=== PATIENT | male | born 1925 | race Caucasian/White ===

== ENCOUNTER 2017-01-26 12:31 | Observation (INO) ==
[2017-01-26] MEDS ORDERED: Aspirin 81 MG TAB.CHEW PO ONE (16:37)
[2017-01-26 17:16] LABS: Basophils % 0.6 %; Eosinophils # 0.1 K/mcL (0.0-0.6); Eosinophils % 1.6 %; Hematocrit 44.1 % (37.5-50.1); Hemoglobin 14.8 g/dL (12.9-16.9); Immature Granulocytes % 0.8 % (0-4); Lymphocytes # 1.1 K/mcL (0.6-4.6); Lymphocytes % 16.8 %; Mean Corpuscular HGB Conc 33.6 g/dL (31.6-35.5); Mean Corpuscular Hemoglobin 31.6 pg (28.0-33.3); Mean Platelet Volume 12.2 fL (9.4-12.4); Monocytes # 0.5 K/mcL (0.0-1.3); Monocytes % 8.1 %; Neutrophils # 4.6 K/mcL (1.6-8.9); Platelet Count 151 K/mcL (140-400); Red Blood Count 4.69 M/mcL (4.19-5.50); Red Cell Distribution Width 12.6 % (11.5-14.5); Segmented Neutrophils % 72.1 %
[2017-01-26 17:19] LABS: Alanine Aminotransferase 14 Units/L (0-55); Albumin 4.1 g/dL (3.5-5.0); Albumin/Globulin Ratio 1.1 (1.1-2.2); Alkaline Phosphatase 103 Units/L (38-126); Aspartate Amino Transferase 21 Units/L (5-34); BUN/Creatinine Ratio 10 (6-26); Blood Urea Nitrogen 12 mg/dL (8-26); Calcium 9.9 mg/dL (8.6-10.8); Carbon Dioxide 28 mEq/L (19-29); Chloride 105 mEq/L (98-109); Globulin 3.6 g/dL (2.4-3.5); Glucose 100 mg/dL (70-99); Osmolality,Calculated 290 (280-300); Potassium 4.4 mEq/L (3.5-4.5); Sodium 140 mEq/L (136-145); Total Protein 7.7 g/dL (6.0-8.3); eGFR For African Americans > 60 (> 60); eGFR For Non-African Americans 59 (> 60)
[2017-01-26 17:45] LABS: Bilirubin,Urine Negative (Negative); Blood,Urine Negative (Negative); Clarity,Urine Clear (Clear); Color,Urine Yellow (Yellow); Glucose,Urine (UA) Normal (Normal); Ketones,Urine Negative (Negative); Leukocyte Esterase,Urine Negative (Negative); Nitrite,Urine Negative (Negative); PH,Urine 6.5 pH Units (5.0-8.0); Protein,Urine Negative (Neg-Trace); Specific Gravity,Urine 1.013 (1.010-1.025); Urobilinogen,Urine Normal (Normal)
[2017-01-26] MEDS ORDERED: Naloxone 0.4 MG/ML INJ IVP PRN (21:01)
[2017-01-26] MEDS ORDERED: Acetaminophen 325 MG TABLET PO PRN (21:12)
[2017-01-26] MEDS ORDERED: Ondansetron 4 MG/2 ML VIAL IVP PRN (21:12)
[2017-01-26] MEDS: *HR* Heparin 5,000 UNIT/ML VIAL SQ SCH (22:08)
--- NOTE | 2017-01-26 23:19 | Internal Med History&Physical ---
Date of Encounter: 01/26/17 Time of Encounter: 20:05 Assessment and Plan (1) TIA (transient ischemic attack) Current visit: Yes Status: Acute 1. Symptoms resolved two days ago roughly one hour after symptom onset. 2. Will proceed with stroke work-up. 3. Will order MRI brain, ECHO, Carotid Dopplers. 4. Will check lipid profile. 5. Will start on daily aspirin. 6. Monitor BP and start treating if necessary. Qualifiers: Transient cerebral ischemia type: unspecified Qualified Code(s): G45.9 - Transient cerebral ischemic attack, unspecified (2) DVT prophylaxis Current visit: Yes Status: Acute 1. Heparin SQ. Internal Medicine - H&P: HPI Chief complaint: left sided weakness and numbness Admitted From: Emergency Dept Plans for Post Hospital Care: Home History of present illness: Mr. Gimenez is a 89 year old male who presents with acute onset of numbness, weakness, and hemiparesis 2 days ago. Symptoms lasted roughly an hour and they resolved thereafter. This happened while he was at home standing in the kitchen. He almost fell to the ground, but he was able to sit in a chair until symptoms resolved. He was coaxed by a family member in [place] to come in and be evaluated. He feels fine now and is back to baseline. He has no residual deficits or complaints. Upon my assessment of the patient ER, he feels well and has no complaints. His and daughter are present and confirmed the above history. He takes no medications and has been healthy all his life. He had a physical exam at the [place] last year and follows once per year or every other year for physical exams. Otherwise, he has no medical issues. He has never been diagnosed with hypertension but his blood pressure is slightly elevated today. Past Med Surg Social Fam HX - Past Medical History Source: patient, old records reviewed Medical history: arthritis Psychiatric history: no psych history - Past Surgical History Surgical History: orthopedic, other - Social History Smoking Status: Former smoker Smokeless Tobacco Status: No Alcohol use: occasionally Drug use: none Current living situation: Home, With Family Activity Level: Independent ambulation, Very active Recent Out of Country Travel Within the Last 8 Weeks: No - Family History Father Living Status: Hx Family Cardiac Disorders: Yes (hypotension) Mother Living Status: Hx Family Neurologic Disorders: No Internal Medicine - H&P: Meds Cholecalciferol (Vitamin D3) [Vitamin D] 2,000 unit PO DAILY 04/07/16 [History] 3 Allergy/AdvReac Type Severity Reaction Status Date / Time No Known Allergies Allergy Verified 04/07/16 10:48 - Constitutional Constitutional: no chills, no fever(s), no night sweats - EENT Eyes: no blurry vision, no change in vision Ears: no ear pain, no tinnitus Nose, mouth and throat: no nasal congestion, no sinus pressure, no sore throat - Cardiovascular Cardiovascular ROS IM: no chest pain, no diaphoresis, no dyspnea, no dyspnea on exertion, no edema, no lightheadedness, no palpitations, no syncope - Respiratory Respiratory: no cough, no dyspnea, no hemoptysis - Gastrointestinal Gastrointestinal: no abdominal pain, no diarrhea, no hematemesis, no hematochezia, no melena, no nausea, no vomiting - Genitourinary Genitourinary ROS male: no dysuria, no flank pain, no hematuria - Musculoskeletal Musculoskeletal ROS IM: no arthralgias, no back pain - Integumentary Integumentary IM: no rash, no jaundice - Neurological Neurological ROS: focal weakness, numbness, paresthesias, no frequent falls, no headache(s) - Psychiatric Psychiatric: no anxiety, no depression - Endocrine Endocrine IM: no polydipsia, no polyuria - Allergic/Immunologic Allergic/Immunologic: no GI upset with certain foods - Constitutional Vitals: Temp Pulse Resp BP Pulse Ox 98.0 F 66 15 167/70 96 01/26/17 22:48 01/26/17 22:48 01/26/17 22:48 01/26/17 22:48 01/26/17 22:48 General appearance: Present: cooperative, A&O X 3, pleasant, no acute distress - Head Head exam: Present: atraumatic, normal inspection - Expanded Head Exam Head exam expanded: Absent: abrasion, contusion, general tenderness - Eye Eye exam: Present: EOMI, normal appearance, PERRL. Absent: scleral icterus Pupils: Present: normal accommodation - ENT ENT exam: Present: mucous membranes moist, normal exam - Neck Neck exam general surgery: Present: full ROM, supple. Absent: tenderness - Respiratory Respiratory exam: Present: CTAB. Absent: chest wall tenderness, rales, rhonchi , wheezes - Cardiovascular Cardiovascular exam: Present: RRR, +S1, +S2. Absent: diastolic murmur, JVD, systolic murmur - GI/Abdominal GI/Abdominal exam: Present: normal bowel sounds, soft. Absent: hepatomegaly, mass, splenomegaly - Extremities Exam Extremities exam: Present: normal capillary refill, warm. Absent: calf tenderness, joint swelling, pedal edema - Back Exam Back exam: Absent: CVA tenderness (L), CVA tenderness (R) - Neurological Exam Neurological exam: Present: alert, CN II-XII intact, oriented X3, reflexes normal, no focal deficits, strengths equal and symetr throughout. Absent: facial droop, speech deficit - Psychiatric Psychiatric exam: Present: normal affect, normal mood - Skin Skin exam: Present: dry, warm. Absent: rash Internal Med - H&P Results - Labs CBC & Chem 7: 01/26/17 17:06 01/26/17 15:47 - EKG Data -: EKG Interpreted by Myself EKG shows normal: sinus rhythm - EKG Data Prior EKG available for review: no EKG comments: 01/26/17 23:28 NSR; no acute changes
--- NOTE | 2017-01-26 23:54 | Emergency Department Note ---
Disposition Clinical Impression: Stroke or transient ischemic attack (TIA) diagnosed during current admission Disposition: Admitted As Inpatient Condition: Good General Adult HPI - General Chief complaint: ED Neuro Symptoms/Deficit Stated complaint: Left sided weakness that has resolved Time Seen by Provider: 01/26/17 16:29 Source: patient Limitations: no limitations Nursing Notes Reviewed: Yes Vital Signs Reviewed: Yes - History of Present Illness HPI Narrative: This is an 89-year-old male who is otherwise healthy who presents with concern for left arm and left leg weakness which started 2 days ago. He is walking up the stairs when he noticed that his left arm and leg went very weak and he was feeling like he was in a fall down. He has no history of stroke. He is not on aspirin therapy. He is very active and takes no medications at home. His symptoms resolved spontaneously and today he felt like he should get checked out as this was concerning for possible TIA. General: No acute distress HEENT: Pupils equal and reactive to light, extraoccular muscle movement is normal, TMS are clear bilaterally. Heart: RRR, No murmor rub or gallop Lungs: lungs clear, no wheezing, rales or ronchi. ABD: SNT, no focal areas or tenderness, no guarding or rebound tenderness. Extremities: No cyanosis, clubbing or edema Neuro: CN 2-12 in tact, no focal deficit. strength 5/5. Medical decision-making This is a male patient with symptoms concerning for TIA. Given his history of being well-appearing and having no previous stroke I would receive an admission for TIA workup. He does have hypertension at this time. I would allow him to remain permissively hypertensive pending hospitalist evaluation. Cardiac biomarkers as well as other laboratory analyses are without significant derangement at this time. The patient was admitted in stable condition after administration of aspirin. Pain Scale: 0 - Related Data Home Medications Medication Instructions Recorded Confirmed Cholecalciferol (Vitamin D3) 2,000 unit PO DAILY 04/07/16 01/26/17 [Vitamin D] Allergies Allergy/AdvReac Type Severity Reaction Status Date / Time No Known Allergies Allergy Verified 04/07/16 10:48 All systems ED: reviewed and negative except as stated. Past Medical History - Past Medical History Medical history: Reports: arthritis Surgical history: Reports: orthopedic, other Psychiatric history: Reports: no psych history - Social History Smoking Status: Former smoker Smokeless Tobacco Status: No Alcohol use: Reports: occasionally Drug use: Reports: none Physical Exam - General Limitations: no limitations General appearance: alert, in no apparent distress Course Vital Signs Temperature 97.7 F 01/26/17 12:35 Pulse Rate 96 01/26/17 12:35 Respiratory Rate 16 01/26/17 12:35 Blood Pressure 157/84 01/26/17 12:35 O2 Sat by Pulse Oximetry 95 01/26/17 12:35 Temperature 98.0 F 01/26/17 22:48 Pulse Rate 66 01/26/17 22:48 Respiratory Rate 15 01/26/17 22:48 Blood Pressure 167/70 01/26/17 22:48 O2 Sat by Pulse Oximetry 96 01/26/17 22:48 Oxygen Delivery Oxygen Delivery Room Air Medical Decision Making - Lab Data Result diagrams: 01/26/17 17:06 01/26/17 15:47 Lab Results 01/26/17 01/26/17 01/26/17 Range/Units 15:47 15:47 15:47 WBC (4.3-11.1) K/mcL RBC (4.19-5.50) M/mcL Hgb (12.9-16.9) g/dL Hct (37.5-50.1) % MCV (83.0-100.0) fL MCH (28.0-33.3) pg MCHC (31.6-35.5) g/dL RDW (11.5-14.5) % Plt Count (140-400) K/mcL MPV (9.4-12.4) fL Immature Gran % (0-4) % Seg Neutrophils % % Lymphocytes % % Monocytes % % Eosinophils % % Basophils % % Neutrophils # (1.6-8.9) K/mcL Lymphocytes # (0.6-4.6) K/mcL Monocytes # (0.0-1.3) K/mcL Eosinophils # (0.0-0.6) K/mcL Basophils # (0.0-0.2) K/mcL Sodium 140 (136-145) mEq/L Potassium 4.4 (3.5-4.5) mEq/L Chloride 105 (98-109) mEq/L Carbon Dioxide 28 (19-29) mEq/L BUN 12 (8-26) mg/dL Creatinine 1.17 (0.72-1.25) mg/dL Est GFR ( Amer) > 60 (> 60) Est GFR (Non-Af Amer) 59 L (> 60) BUN/Creatinine Ratio 10 (6-26) Glucose 100 H (70-99) mg/dL Calculated Osmolality 290 (280-300) Calcium 9.9 (8.6-10.8) mg/dL Total Bilirubin 1.0 (0.2-1.2) mg/dL AST 21 (5-34) Units/L ALT 14 (0-55) Units/L Alkaline Phosphatase 103 (38-126) Units/L Troponin I 0.01 (0-0.03) ng/mL B-Natriuretic Peptide < 10 (0-100) pg/mL Serum Total Protein 7.7 (6.0-8.3) g/dL Albumin 4.1 (3.5-5.0) g/dL Globulin 3.6 H (2.4-3.5) g/dL Albumin/Globulin Ratio 1.1 (1.1-2.2) Urine Color (Yellow) Urine Clarity (Clear) Urine pH (5.0-8.0) pH Units Ur Specific [place] (1.010-1.025) Urine Protein (Neg-Trace) mg/dL Urine Glucose (UA) (Normal) mg/dL Urine Ketones (Negative) mg/dL Urine Blood (Negative) Urine Nitrite (Negative) Urine Bilirubin (Negative) Urine Urobilinogen (Normal) mg/dL Ur Leukocyte Esterase (Negative) Ur Culture Indicated? (NO) 01/26/17 01/26/17 Range/Units 17:06 17:34 WBC 6.4 (4.3-11.1) K/mcL RBC 4.69 (4.19-5.50) M/mcL Hgb 14.8 (12.9-16.9) g/dL Hct 44.1 (37.5-50.1) % MCV 94.0 (83.0-100.0) fL MCH 31.6 (28.0-33.3) pg MCHC 33.6 (31.6-35.5) g/dL RDW 12.6 (11.5-14.5) % Plt Count 151 (140-400) K/mcL MPV 12.2 (9.4-12.4) fL Immature Gran % 0.8 (0-4) % Seg Neutrophils % 72.1 % Lymphocytes % 16.8 % Monocytes % 8.1 % Eosinophils % 1.6 % Basophils % 0.6 % Neutrophils # 4.6 (1.6-8.9) K/mcL Lymphocytes # 1.1 (0.6-4.6) K/mcL Monocytes # 0.5 (0.0-1.3) K/mcL Eosinophils # 0.1 (0.0-0.6) K/mcL Basophils # 0.0 (0.0-0.2) K/mcL Sodium (136-145) mEq/L Potassium (3.5-4.5) mEq/L Chloride (98-109) mEq/L Carbon Dioxide (19-29) mEq/L BUN (8-26) mg/dL Creatinine (0.72-1.25) mg/dL Est GFR ( Amer) (> 60) Est GFR (Non-Af Amer) (> 60) BUN/Creatinine Ratio (6-26) Glucose (70-99) mg/dL Calculated Osmolality (280-300) Calcium (8.6-10.8) mg/dL Total Bilirubin (0.2-1.2) mg/dL AST (5-34) Units/L ALT (0-55) Units/L Alkaline Phosphatase (38-126) Units/L Troponin I (0-0.03) ng/mL B-Natriuretic Peptide (0-100) pg/mL Serum Total Protein (6.0-8.3) g/dL Albumin (3.5-5.0) g/dL Globulin (2.4-3.5) g/dL Albumin/Globulin Ratio (1.1-2.2) Urine Color Yellow (Yellow) Urine Clarity Clear (Clear) Urine pH 6.5 (5.0-8.0) pH Units Ur Specific [place] 1.013 (1.010-1.025) Urine Protein Negative (Neg-Trace) mg/dL Urine Glucose (UA) Normal (Normal) mg/dL Urine Ketones Negative (Negative) mg/dL Urine Blood Negative (Negative) Urine Nitrite Negative (Negative) Urine Bilirubin Negative (Negative) Urine Urobilinogen Normal (Normal) mg/dL Ur Leukocyte Esterase Negative (Negative) Ur Culture Indicated? NO (NO)
[2017-01-27] MEDS: *HR* Heparin 5,000 UNIT/ML VIAL SQ SCH ×2 (05:24→17:03)
[2017-01-27 05:29] LABS: Basophils # 0.1 K/mcL (0.0-0.2); Eosinophils # 0.2 K/mcL (0.0-0.6); Eosinophils % 3.2 %; Hemoglobin 14.3 g/dL (12.9-16.9); Immature Granulocytes % 0.6 % (0-4); Lymphocytes % 20.3 %; Mean Corpuscular Hemoglobin 32.1 pg (28.0-33.3); Mean Corpuscular Volume 94.2 fL (83.0-100.0); Mean Platelet Volume 12.3 fL (9.4-12.4); Monocytes # 0.4 K/mcL (0.0-1.3); Monocytes % 8.9 %; Neutrophils # 3.3 K/mcL (1.6-8.9); Platelet Count 127 K/mcL (140-400); Red Blood Count 4.46 M/mcL (4.19-5.50); Red Cell Distribution Width 12.6 % (11.5-14.5)
[2017-01-27 05:36] LABS: Prothrombin Time 11.1 Seconds (9.4-12.1)
[2017-01-27 05:39] LABS: Activated Partial Thrombo Time 27.5 Seconds (26.0-36.0)
[2017-01-27 05:47] LABS: Alanine Aminotransferase 12 Units/L (0-55); Albumin 3.7 g/dL (3.5-5.0); Albumin/Globulin Ratio 1.1 (1.1-2.2); Alkaline Phosphatase 90 Units/L (38-126); Aspartate Amino Transferase 27 Units/L (5-34); BUN/Creatinine Ratio 11 (6-26); Bilirubin,Total 1.5 mg/dL (0.2-1.2); Blood Urea Nitrogen 12 mg/dL (8-26); Calcium 9.5 mg/dL (8.6-10.8); Carbon Dioxide 24 mEq/L (19-29); Chloride 106 mEq/L (98-109); Chol/HDL Ratio 3.5 (0-4.9); Cholesterol 180 mg/dL (< 200); Globulin 3.5 g/dL (2.4-3.5); Glucose 91 mg/dL (70-99); HDL Cholesterol 52 mg/dL (40-59); LDL Cholesterol,Calculated 111 mg/dL (0-99); Magnesium 2.2 mg/dL (1.6-2.6); Osmolality,Calculated 293 (280-300); Sodium 142 mEq/L (136-145); Total Protein 7.2 g/dL (6.0-8.3); Triglycerides 87 mg/dL (< 150); eGFR For African Americans > 60 (> 60); eGFR For Non-African Americans > 60 (> 60)
[2017-01-27 05:48] LABS: Potassium 4.1 mEq/L (3.5-4.5)
[2017-01-27] MEDS: Aspirin 81 MG TAB.CHEW PO SCH (08:38)
--- NOTE | 2017-01-27 16:41 | Electrocardiograph Report ---
[place] [id number] Test Date: 2017-01-26 Pat Name: Shaan Gimenez Department: 102 Room: 3B22 Gender: M Rub[employer] Molder: : 1925 Requested By: Clementina Loza Order Number: [id number] Reading MD: Tiki Colin Measurements Intervals [facility] Rate: 72 P: 56 OR: 162 QRS: 7 QRSD: 78 T: 41 QT: 370 QTc: 393 Interpretive Statements SINUS RHYTHM Electronically Signed On 01-27-2017 16:39:56 EDT by Tiki Colin
--- NOTE | 2017-01-27 17:08 | Internal Med Progress Note ---
Date of Encounter: 01/27/17 Time of Encounter: 08:45 - Assessment and plan (1) Stroke or transient ischemic attack (TIA) diagnosed during current admission Current Visit: Yes Status: Acute Assessment and plan: Patient denies symptoms. Onset of patient 2 days prior to arrival, lasted approximately one hour. Head CT was negative. At this time we are still waiting on echo and carotid results, MRI was not completed at this time. Lipid profiles within normal limits. Continue aspirin. Results pending. Patient has returned to baseline. Consider consulting neurology based on final test results. (2) DVT prophylaxis Current Visit: Yes Status: Acute Assessment and plan: Heparin subcutaneous. - Time Spent With Patient less than 15 minutes - Subjective Interval history: Patient is alert and awake, he was seen at bedside at 08 40 5 AM. He denies headache, blurred vision, neck pain, slurred speech, vision changes, chest pain , shortness of breath, nausea, vomiting, diaphoresis, abdominal pain, confusion or symptoms from arrival today. His speech is clear and concise. CT feels like he is back to his baseline. He is aware at this time that we are waiting on echocardiogram, carotids, MRI results. As at this time, MRI has not been done yet. - Constitutional Vitals: Temp Pulse Resp BP Pulse Ox 98.5 F 74 16 158/78 92 01/27/17 15:50 01/27/17 15:50 01/27/17 15:50 01/27/17 15:50 01/27/17 15:50 General appearance: Present: cooperative, A&O X 3, pleasant, no acute distress, answers questions appropriately - Head Head exam: Present: atraumatic, normal inspection, normocephalic - Eye Eye exam: Present: normal appearance, conjuntiva pink, sclera anicteric - Neck Neck exam general surgery: Present: normal inspection, supple, trachea midline. Absent: lymphadenopathy, tenderness - Respiratory Respiratory exam: Present: CTAB. Absent: accessory muscle use, decreased breath sounds, rales, respiratory distress, rhonchi, wheezes - Cardiovascular Cardiovascular exam: Present: RRR, +S1, +S2. Absent: diastolic murmur, gallop, rubs, systolic murmur - GI/Abdominal GI/Abdominal exam: Present: normal bowel sounds, soft, no peritoneal signs. Absent: distended, hepatomegaly, tenderness - Extremities Exam Extremities exam: Present: normal capillary refill, warm, radial pulses palpable and symmetrical. Absent: calf tenderness, cyanotic, pedal edema, tenderness - Neurological Exam Neurological exam: Present: alert, oriented X3, no focal deficits. Absent: facial droop, speech deficit - Skin Skin exam: Present: dry, intact, normal color, warm. Absent: rash Internal Medicine: Result - Labs CBC & Chem 7: 01/27/17 04:16 01/27/17 04:16 Labs: Short CBC 01/27/17 Range/Units 04:16 WBC 5.0 (4.3-11.1) K/mcL Hgb 14.3 (12.9-16.9) g/dL Hct 42.0 (37.5-50.1) % Plt Count 127 L (140-400) K/mcL Neutrophils # 3.3 (1.6-8.9) K/mcL BMP 01/27/17 04:16 Sodium 142 Potassium 4.1 Chloride 106 Carbon Dioxide 24 BUN 12 Creatinine 1.05 Glucose 91 Calcium 9.5 Liver Function 01/27/17 Range/Units 04:16 Total Bilirubin 1.5 H (0.2-1.2) mg/dL AST 27 (5-34) Units/L ALT 12 (0-55) Units/L Alkaline Phosphatase 90 (38-126) Units/L Albumin 3.7 (3.5-5.0) g/dL - ABG Interpretation ABG results: PT/INR, D-dimer PT 11.1 Seconds (9.4-12.1) 01/27/17 04:16 Consult Discharge Plan - Plan Referrals: Jeison Rangel DO [Primary Care Provider] -
--- NOTE | 2017-01-27 18:39 | Carotid Imaging Report ---
Carotid Duplex Patient Name:Shaan Gimenez Order Number:[id number] Procedure Date:01/27/2017 Date:1925ge:89 yrs Gender:Male Location:[facility] Room #: 3B22 [employer] Tower:[place] [place] Referring MD:Sammy Espinal MD Reading MD:Cristian Brown MD Primary Indications:TIA Risk Factors Yes/No Hx of TIA Yes Hypertension No Diabetes No Hypercholesterolemia No Impressions: The bilateral carotid arteries have minimal plaque throughout. Findings Carotid Duplex: Right: There is nonstenotic plaque in the right bifurcation. There is smooth homogeneous plaque. There is nonstenotic plaque in the right proximal internal carotid artery. There is smooth homogeneous plaque. There is nonstenotic plaque in the right eca. There is smooth homogeneous plaque. The right vertebral artery was not assessed. Left: There is nonstenotic plaque in the left mid common carotid artery. There is smooth homogeneous plaque. There is nonstenotic plaque in the left bifurcation. There is smooth heterogeneous plaque. There is nonstenotic plaque in the left proximal internal carotid artery. There is smooth, heterogeneous calcified plaque. There is nonstenotic plaque in the left eca. There is smooth homogeneous plaque. Prior Study: No prior study available for comparison. Carotid Results Right PSV EDV Assessment Proximal CCA 84 6 Normal Mid CCA 63 9 Normal Distal CCA 72 9 Normal Bifurcation 56 7 Non Stenotic Plaque Proximal ICA 66 13 Non Stenotic Plaque Mid ICA 62 14 Normal Distal ICA 58 13 Normal ECA 84 0 Non Stenotic Plaque Left PSV EDV Assessment Proximal CCA 83 8 Normal Mid CCA 73 8 Non Stenotic Plaque Distal CCA 84 15 Normal Bifurcation 64 13 Non Stenotic Plaque Proximal ICA 74 19 Non Stenotic Plaque Mid ICA 88 27 Normal Distal ICA 62 22 Normal ECA 86 0 Non Stenotic Plaque Vertebral Artery 68 15 Antegrade Flow Ratio's Right ICA/CCA Ratio: 1.04 ICA/CCA Values: 66/63 Left ICA/CCA Ratio: 1.20 ICA/CCA Values: 88/73 Updated by Cristian Bronw MD on 01/27/2017 6:31:50 PM electronically signed on 01/27/2017 6:32:03 PM with status of Final
[2017-01-28 06:08] LABS: Basophils # 0.1 K/mcL (0.0-0.2); Basophils % 0.9 %; Eosinophils # 0.2 K/mcL (0.0-0.6); Eosinophils % 2.8 %; Hematocrit 40.8 % (37.5-50.1); Hemoglobin 13.9 g/dL (12.9-16.9); Immature Granulocytes % 0.8 % (0-4); Lymphocytes # 0.9 K/mcL (0.6-4.6); Lymphocytes % 16.6 %; Mean Corpuscular HGB Conc 34.1 g/dL (31.6-35.5); Mean Corpuscular Hemoglobin 31.8 pg (28.0-33.3); Mean Corpuscular Volume 93.4 fL (83.0-100.0); Mean Platelet Volume 12.8 fL (9.4-12.4); Monocytes # 0.4 K/mcL (0.0-1.3); Monocytes % 7.9 %; Neutrophils # 3.8 K/mcL (1.6-8.9); Platelet Count 119 K/mcL (140-400); Red Blood Count 4.37 M/mcL (4.19-5.50); Red Cell Distribution Width 12.3 % (11.5-14.5)
[2017-01-28 06:19] LABS: BUN/Creatinine Ratio 12 (6-26); Blood Urea Nitrogen 12 mg/dL (8-26); Calcium 9.3 mg/dL (8.6-10.8); Carbon Dioxide 27 mEq/L (19-29); Chloride 106 mEq/L (98-109); Glucose 93 mg/dL (70-99); Osmolality,Calculated 289 (280-300); Potassium 3.8 mEq/L (3.5-4.5); Sodium 140 mEq/L (136-145); eGFR For African Americans > 60 (> 60); eGFR For Non-African Americans > 60 (> 60)
[2017-01-28] MEDS: *HR* Heparin 5,000 UNIT/ML VIAL SQ SCH (06:32)
[2017-01-28] MEDS: Aspirin 81 MG TAB.CHEW PO SCH (08:34)
--- NOTE | 2017-01-28 11:43 | Discharge Summary ---
Date of Encounter: 01/28/17 Time of Encounter: 09:15 - Discharge Diagnosis (1) Stroke or transient ischemic attack (TIA) diagnosed during current admission Priority: Primary Status: Acute Comments: Symptoms occurred 2 days prior to admission and lasted approximately 1 hour. Pt has had no symptoms since. Denies LEI, blurred vision, n/v/diaphoresis, chest pain, SOB, abdominal pain, dysarthria, or dizziness/lightheadedness. (2) DVT prophylaxis Priority: Secondary Status: Acute Comments: Heparin SQ. - Discharge Medications Prescriptions: Aspirin Enteric Coated [Aspirin EC] 81 mg PO DAILY #30 tablet.dr [place] Medications: Cholecalciferol (Vitamin D3) [Vitamin D3] 2,000 unit PO DAILY 04/07/16 [History] Aspirin Enteric Coated [Aspirin EC] 81 mg PO DAILY #30 tablet. 01/28/17 [Rx] Allergies/Adverse Reactions: 3 Allergy/AdvReac Type Severity Reaction Status Date / Time No Known Allergies Allergy Verified 04/07/16 10:48 Procedures/tests Complete & Pending: Procedures Performed prior 72 hours Category Date Time Status MR head/brain wo con [MR] Routine MRI 01/27/17 21:17 Completed ECG 12 lead ECG [ECG] Routine Y 01/26/17 16:38 Completed EV carotid duplex imaging BI Routine Y 01/27/17 21:17 Completed EV echocardiogram Routine Y 01/27/17 21:17 Completed Date of admission: 01/26/17 19:55 Primary care physician: Jeison Rangel Discharging clinician: Heather Kay Anticipated date of discharge: 01/28/17 - Patient Status Disposition: Home, Self-Care Condition: Good Functional capacity at discharge: independent ambulation Overall status at discharge: patient is back to baseline - Discharge Instructions Follow Up With: Kasey Douglas CNP [Partnered Physician] - 02/03/17 10:00 am Additional Instructions: Follow up with your PCP in the next 7-10 days for a follow up visit. REturn to ER for any other problems or concerns. Take your medications as directed and return to your normal activities as tolerated. - Diet and Activity Activity: increase activity as tolerated, resume usual activities as tolerated Diet: advance to your usual diet Hospital course: Mr. Gimenez is a 89 year old male with no significant prior medical history who presented to the ED for evaluation of numbness, weakness, and hemiparesis 2 days prior to admission. Symptoms lasted approximately 1 hour and resolved spontaneously. He has had no return of symptoms since that time. Head CT negative for actue intracranial abnormality, EKG was NSR with rate of 72, ME interval 162, QRS duration 78, and QTc 393. Bilateral carotids have minimal plaque throughout, brain MRI showed no acute infarct. Physical exam is unremarkable, no focal neurological deficits, strength is equal bilaterally in both upper and lower extremities. Pt denies n/v, dizziness, lightheadedness, vision changes, SOB, chest pain, abdominal pain, or diaphoresis. Vitals are stable and labs are WNL. Pt will be placed on ASA daily, would not recommend Plavix due to age and increased risk of falls/bleeds. Lipid panel is WNL, would no recommend statin at this time, pt can discuss further interventions with PCP after discharge. Pt is stable and ready for discharge. - Time Spent with Patient Total time spent providing and/or coordinating discharge services: Less than 30 minutes - Constitutional Vitals: Temp Pulse Resp BP Pulse Ox 97.7 F 78 16 150/78 95 01/28/17 07:54 01/28/17 07:54 01/28/17 07:54 01/28/17 07:54 01/28/17 07:54 General appearance: Present: cooperative, A&O X 3, pleasant, no acute distress, answers questions appropriately - Head Head exam: Present: normal inspection - Eye Eye exam: Present: normal appearance, conjuntiva pink, sclera anicteric - Neck Neck exam general surgery: Present: supple, trachea midline. Absent: lymphadenopathy, tenderness - Respiratory Respiratory exam: Present: CTAB. Absent: accessory muscle use, chest wall tenderness, rales, respiratory distress, rhonchi, wheezes - Cardiovascular Cardiovascular exam: Present: RRR, +S1, +S2. Absent: diastolic murmur, gallop, rubs, systolic murmur - GI/Abdominal GI/Abdominal exam: Present: normal bowel sounds, soft, no peritoneal signs. Absent: distended, hepatomegaly, tenderness - Extremities Exam Extremities exam: Present: normal inspection, warm, radial pulses palpable and symmetrical. Absent: calf tenderness, cyanotic, pedal edema - Neurological Exam Neurological exam: Present: alert, oriented X3, no focal deficits, strengths equal and symetr throughout. Absent: facial droop, speech deficit - Skin Skin exam: Present: dry, intact, normal color, warm. Absent: rash - VTE Documentation of Mechanical Device: Intermittent pneumatic compression device
[2017-01-28 12:04] VITALS: BP 147/54
== END 2017-01-28 12:45 | disposition home or self-care (01) ==
LOC: 3BNU 12:31 → EMEROO 12:31 → 3BNU 20:58
PROVIDERS: ADMIT Family Medicine; ATTEND Registered Nurse